=== PATIENT | female | born 1960 | race African-American/Black ===

== ENCOUNTER 2020-01-24 10:51 | Emergency (ER) | payer OTHER ==
[~2020-01-24] VITALS: Ht 154.9 cm; Wt 102.1 kg
[2020-01-24] MEDS ORDERED: NOVOLOG100 UNIT/1 SUBQ (11:14)
[2020-01-24] MEDS ORDERED: METFORMIN HCL500 M3 PO (11:14)
[2020-01-24] MEDS ORDERED: PROMETH-CODEIN 65 ML PO (12:17)
[2020-01-24] MEDS ORDERED: ZOFRAN ODT4 MG SUBLING (12:17)
[2020-01-24] MEDS ORDERED: PREDNISONE 20 M20 M1 PO (12:18)
[2020-01-24] MEDS ORDERED: ZPAK PO (12:18)
[2020-01-24 12:39] VITALS: BP 133/78
== END 2020-01-24 12:40 | disposition home or self-care (01) ==
LOC: M.ERS 10:51
DX: U07.1 COVID-19 (principal); I10 Essential (primary) hypertension; E11.9 Type 2 diabetes mellitus without complications; E78.5 Hyperlipidemia, unspecified; Z79.4 Long term (current) use of insulin; Z88.0 Allergy status to penicillin; Z88.6 Allergy status to analgesic agent